=== PATIENT | male | born 1995 | race Caucasian/White ===

== ENCOUNTER 2017-12-12 16:48 | Emergency (ER) | payer SELFPAY, OTHER ==
[2017-12-12] MEDS: IBUPROFEN 600 MG TAB PO (17:19)
== END 2017-12-12 17:31 | disposition home or self-care (01) ==
LOC: M ED 16:48
DX: K04.7 Periapical abscess without sinus (principal); S02.5XXA Fracture of tooth (traumatic), initial encounter for closed fracture; X58.XXXA Exposure to other specified factors, initial encounter; Y92.89 Other specified places as the place of occurrence of the external cause
CPT/HCPCS: 99282